=== PATIENT | female | born 1945 | race African-American/Black ===

== ENCOUNTER 2025-02-01 09:23 | Outpatient (CLI) | payer OTHER, SELFPAY | END 2025-02-01 09:24 | disposition home or self-care (01) | PROVIDERS: Visit Provider Emergency Medicine | DX: E78.5 Hyperlipidemia, unspecified (principal); I10 Essential (primary) hypertension; E11.69 Type 2 diabetes mellitus with other specified complication; R80.0 Isolated proteinuria; Z79.4 Long term (current) use of insulin | CPT/HCPCS: 80053; 80061; 82043; 82570 ==

== ENCOUNTER 2025-03-28 08:23 | Outpatient (CLI) | payer OTHER, SELFPAY | END 2025-03-28 08:24 | disposition home or self-care (01) | PROVIDERS: Visit Provider Emergency Medicine | DX: I10 Essential (primary) hypertension (principal); Z86.39 Personal history of other endocrine, nutritional and metabolic disease | CPT/HCPCS: 80048; 82728 ==

== ENCOUNTER 2025-06-28 10:57 | Outpatient (CLI) | payer OTHER, SELFPAY | END 2025-06-28 10:58 | disposition home or self-care (01) | PROVIDERS: PCP Physician Assistant Medical; Visit Provider Physician Assistant Medical | DX: E11.69 Type 2 diabetes mellitus with other specified complication (principal); I10 Essential (primary) hypertension; Z79.4 Long term (current) use of insulin | CPT/HCPCS: 82607; 83540; 83550 ==

== ENCOUNTER 2025-07-17 10:15 | Outpatient (CLI) | payer OTHER, SELFPAY | END 2025-07-17 10:16 | disposition home or self-care (01) | LOC: NFLDREF 10:16 | PROVIDERS: PCP Physician Assistant Medical; Visit Provider Internal Medicine Nephrology | DX: N18.30 Chronic kidney disease, stage 3 unspecified (principal) | CPT/HCPCS: 80069; 82043; 82570; 87086 ==

== ENCOUNTER 2025-07-24 11:03 | Outpatient (CLI) | payer OTHER, SELFPAY ==
--- NOTE | 2025-07-24 11:30 | CRLHL7_ITS ---
For Patients: As a result of the Century Cures Act, medical imaging exams and procedure reports are released immediately into your electronic medical record. You may view this report before your referring provider. If you have questions, please contact your health care provider. INDICATION: Chronic kidney disease, assess for obstruction. TECHNIQUE: Ultrasound renal and bladder complete. Mckinley-scale and color Doppler sonographic images were acquired of the kidneys and urinary bladder. COMPARISON: None. FINDINGS: Right kidney: Size: 9.5 cm. Morphology: Normal echotexture and cortex. Masses: No suspicious mass. Stones: No. Hydronephrosis: No. Left kidney: Size: 9.7 cm. Morphology: Normal echotexture and cortex. Masses: No suspicious mass. Stones: No. Hydronephrosis: No. Bladder: Morphology: Normal in caliber and appearance. Prevoid bladder volume measures 238.7 cc. Postvoid bladder volume measures 40.8 cc. Ureteral jets: Present bilaterally.. IMPRESSION: Unremarkable renal ultrasound. Dictated by North Cobos MD @ 07/24/2025 1:55:43 PM (Electronically Signed)
== END 2025-07-24 11:04 | disposition home or self-care (01) ==
LOC: US 11:03
PROVIDERS: PCP Physician Assistant Medical; Visit Provider Internal Medicine Nephrology
DX: N18.9 Chronic kidney disease, unspecified (principal)
CPT/HCPCS: 76770